=== PATIENT | female | born 1965 | race Hispanic/Latino ===

== ENCOUNTER 2018-12-19 17:04 | Emergency (ER) | payer OTHER ==
[2018-12-19 17:41] LABS: Absolute Lymphocytes (CBC) 4.2 K/uL (0.7-4.9); Absolute Monocytes 0.8 K/uL (0.1-1.3); Absolute Neutrophil 3.8 K/uL (1.8-8.0); Basophils % 0.8 % (0-1.3); Eosinophils % 2.7 % (0-4.4); Hematocrit 43.4 % (36.0-45.0); Lymphocytes % 45.5 % (15.3-44.8); RBC Red Blood Cell Count 4.98 M/uL (3.86-4.86)
[2018-12-19 17:44] LABS: Protime INR 1.01
[2018-12-19 18:12] LABS: Albumin 3.5 g/dL (3.4-5.0); Bilirubin Total 0.3 mg/dL (0.2-1.0); Potassium 3.7 mmol/L (3.5-5.1); Protein, Total 7.8 g/dL (6.4-8.2)
--- NOTE | 2018-12-19 18:14 | RAD REPORT ---
EXAM DESCRIPTION: RAD - Foot Left 3 View - 12/19/2018 5:57 pm CLINICAL HISTORY: Left Foot pain FINDINGS: No fracture is seen The bones are osteoporotic. Subluxation involves several proximal and middle phalanges. Erosions involve the PIP and DIP joints. Fusion involves the third proximal and middle phalanx.
--- NOTE | 2018-12-19 19:18 | RAD REPORT ---
EXAM DESCRIPTION: [facility] [employer]4 6:56 pm CLINICAL HISTORY: left leg pain and swelling. COMPARISON: None. FINDINGS: Left common femoral, superficial femoral, popliteal and posterior tibial veins are compre ssible and demonstrate augmentation. Doppler demonstrates good flow. IMPRESSION: No evidence of deep venous thrombosis involving the left lower extremity.
--- NOTE | 2018-12-19 19:26 | ER ---
Nurse's Notes [facility] Name: Mali Gann Age: 53 yrs Sex: Female : 1965 Arrival Date: 12/19/2018 Time: 17:07 Bed 24 Private MD: Diagnosis: Cellulitis of left lower limb Presentation: 12/19 17:08 Presenting complaint: Patient states: I have some redness and swelling to my LLE that la1 started a couple days ago. Transition of care: patient was not received from another setting of care. Onset of symptoms was December 19, 2018. Risk Assessment: Do you want to hurt yourself or someone else? Patient reports no desire to harm self or others. Initial Sepsis Screen: Does the patient meet any 2 criteria? No. Patient's initial sepsis screen is negative. Does the patient have a suspected source of infection? No. Patient's initial sepsis screen is negative. Care prior to arrival: None. 17:08 Method Of Arrival: Ambulatory la1 17:08 Acuity: ROSITA 3 la1 Historical: - Allergies: 17:09 No Known Allergies; la1 - Home Meds: 17:09 Remicade 100 mg intravenous solr every 6 wks for Psoriatic Arthritis [Active]; la1 - PMHx: 17:09 psoriatic arthritis; la1 - PSHx: 17:09 Tonsillectomy; la1 - Immunization history:: Adult Immunizations up to date. - Social history:: Smoking status: Patient/guardian denies using tobacco. - Ebola Screening: : No symptoms or risks identified at this time. Screenin:20 Abuse screen: Denies threats or abuse. Denies injuries from another. Nutritional aj screening: No deficits noted. Tuberculosis screening: No symptoms or risk factors identified. Fall Risk None identified. Assessment: 17:18 General: Appears in no apparent distress. comfortable, obese, Behavior is calm, aj cooperative, appropriate for age. Pain: Denies pain. Neuro: Level of Consciousness is awake, alert, obeys commands, Oriented to person, place, time, situation, Appropriate for age. Respiratory: Airway is patent Respiratory effort is even, unlabored, Respiratory pattern is regular, symmetrical. Derm: Skin is intact, is healthy with good turgor, Skin is pink, warm \T\ dry. normal. Derm: Rash noted that is red, on left lateral ankle, left medial ankle and anterior aspect of left ankle. Musculoskeletal: Swelling present in right leg and left leg. Vital Signs: 17:09 BP 125 / 66; Pulse 67; Resp 16; Temp 97.5; Pulse Ox 98% on R/A; Weight 127.01 kg; la1 Height 5 ft. 7 in. (170.18 cm); Pain 0/10; 19:13 BP 108 / 49; Pulse 55; Resp 18; Temp 98.0(O); Pulse Ox 99% on R/A; aj 17:09 Body Mass Index 43.85 (127.01 kg, 170.18 cm) la1 ED Course: 17:07 Patient arrived in ED. as 17:08 Triage completed. la1 17:10 Arm band placed on left wrist. la1 17:11 Angeles Lauren, RN is Primary Nurse. aj 17:12 Mark Langley NP is PHCP. pm1 17:12 Tanvir Cisneros MD is Attending Physician. pm1 17:20 Patient has correct armband on for positive identification. aj 17:34 No provider procedures requiring assistance completed. Inserted saline lock: 20 gauge mg2 in right forearm, using aseptic technique. Blood collected. 17:54 Foot Left 3 View XRAY In Process Unspecified. EDMS 18:33 PT-INR Sent. aj 18:33 CMP Sent. aj 18:33 CBC with Diff Sent. aj 18:56 Extremity Venous Uni Ltd US In Process Unspecified. EDMS 18:56 Ultrasound completed. Patient tolerated well. 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 sg3 19:35 IV discontinued, intact, bleeding controlled, No redness/swelling at site. Pressure aj dressing applied. 19:35 Ortho shoe applied to left foot. aj Administered Medications: No medications were administered Outcome: 19:25 Discharge ordered by . pm1 19:35 Discharged to home ambulatory. aj 19:35 Condition: good 19:35 Discharge instructions given to patient, friend, Instructed on discharge instructions, follow up and referral plans. medication usage, Demonstrated understanding of instructions, follow-up care, medications, Prescriptions given X 1. 19:37 Patient left the ED. aj Signatures: Dispatcher [employer] EDMS Angeles Lauren RN RN aj Martinez, Amelia as Attema, Lee, RN RN la1 Mark Langley NP PIT WORKER POWER SHOVEL pm1 Mali Jimenez sg3 Tyler Hurley, RN RN mg2 Corrections: (The following items were deleted from the chart) 19:36 19:35 Elise kruger applied to aj aj
--- NOTE | 2018-12-19 19:26 | EDPHYS ---
Physician Documentation [facility] Name: Mali Gann Age: 53 yrs Sex: Female : 1965 Arrival Date: 12/19/2018 Time: 17:07 Bed 24 Private MD: ED Physician Tanvir Cisneros HPI: 12/19 18:04 This 53 yrs old Female presents to ER via Ambulatory with complaints of Leg pm1 Pain - Redness. 18:04 The patient presents with swelling. The complaints affect the left leg. Context: The pm1 problem was sustained at home, resulted from an unknown cause, the patient can fully bear weight, the patient is able to ambulate. Onset: The symptoms/episode began/occurred 5 week(s) ago. Modifying factors: The symptoms are alleviated by nothing. the symptoms are aggravated by nothing. Associated signs and symptoms: Pertinent positives: swelling, of the left ankle. Treatment prior to arrival includes: no previous treatment. Severity of symptoms: in the emergency department the symptoms are actually worse. The patient has not experienced similar symptoms in the past. The patient has not recently seen a physician. Patient dropped an object on her second left toe 5 weeks ago. Assumed that she broke it and she just isabel taped it. 1 week ago patient had a red tender bump on the dorsum of her left foot with some swelling just above her left ankle. Historical: - Allergies: 17:09 No Known Allergies; la1 - Home Meds: 17:09 Remicade 100 mg intravenous solr every 6 wks for Psoriatic Arthritis [Active]; la1 - PMHx: 17:09 psoriatic arthritis; la1 - PSHx: 17:09 Tonsillectomy; la1 - Immunization history:: Adult Immunizations up to date. - Social history:: Smoking status: Patient/guardian denies using tobacco. - Ebola Screening: : No symptoms or risks identified at this time. ROS: 18:04 Constitutional: Negative for fever, chills, and weight loss, Eyes: Negative for injury, pm1 pain, redness, and discharge, ENT: Negative for injury, pain, and discharge, Neck: Negative for injury, pain, and swelling, Cardiovascular: Negative for chest pain, palpitations, and edema, Respiratory: Negative for shortness of breath, cough, wheezing, and pleuritic chest pain, Abdomen/GI: Negative for abdominal pain, nausea, vomiting, diarrhea, and constipation, Back: Negative for injury and pain, : Negative for injury, bleeding, discharge, and swelling. 18:04 Neuro: Negative for headache, weakness, numbness, tingling, and seizure. 18:04 MS/extremity: Positive for injury or acute deformity, of the left second toe. 18:04 Skin: Positive for swelling, of the left ankle. Exam: 18:04 Constitutional: This is a well developed, well nourished patient who is awake, alert, pm1 and in no acute distress. Head/Face: Normocephalic, atraumatic. Eyes: Pupils equal round and reactive to light, extra-ocular motions intact. Lids and lashes normal. Conjunctiva and sclera are non-icteric and not injected. Cornea within normal limits. Periorbital areas with no swelling, redness, or edema. ENT: Nares patent. No nasal discharge, no septal abnormalities noted. Tympanic membranes are normal and external auditory canals are clear. Oropharynx with no redness, swelling, or masses, exudates, or evidence of obstruction, uvula midline. Mucous membranes moist. Neck: Trachea midline, no thyromegaly or masses palpated, and no cervical lymphadenopathy. Supple, full range of motion without nuchal rigidity, or vertebral point tenderness. No Meningismus. Chest/axilla: Normal chest wall appearance and motion. Nontender with no deformity. No lesions are appreciated. Cardiovascular: Regular rate and rhythm with a normal S1 and S2. No gallops, murmurs, or rubs. Normal PMI, no JVD. No pulse deficits. Respiratory: Lungs have equal breath sounds bilaterally, clear to auscultation and percussion. No rales, rhonchi or wheezes noted. No increased work of breathing, no retractions or nasal flaring. Abdomen/GI: Soft, non-tender, with normal bowel sounds. No distension or tympany. No guarding or rebound. No evidence of tenderness throughout. Back: No spinal tenderness. No costovertebral tenderness. Full range of motion. 18:04 MS/ Extremity: Pulses equal, no cyanosis. Neurovascular intact. Full, normal range of motion. 18:04 Skin: Appearance: normal except for affected area, cellulitis, that is mild, on the just above left ankle. 18:04 Neuro: Orientation: is normal, Motor: is normal, moves all fours, Gait: is steady, at a normal pace, without difficulty. Vital Signs: 17:09 BP 125 / 66; Pulse 67; Resp 16; Temp 97.5; Pulse Ox 98% on R/A; Weight 127.01 kg; la1 Height 5 ft. 7 in. (170.18 cm); Pain 0/10; 19:13 BP 108 / 49; Pulse 55; Resp 18; Temp 98.0(O); Pulse Ox 99% on R/A; aj 17:09 Body Mass Index 43.85 (127.01 kg, 170.18 cm) la1 MDM: 17:12 Patient medically screened. pm1 19:24 Data reviewed: vital signs. Data interpreted: Pulse oximetry: on room air is 99 %. pm1 Interpretation: normal. Counseling: I had a detailed discussion with the patient and/or guardian regarding: the historical points, exam findings, and any diagnostic results supporting the discharge/admit diagnosis, lab results, radiology results, the need for outpatient follow up, to return to the emergency department if symptoms worsen or persist or if there are any questions or concerns that arise at home. 12/19 17:21 Order name: CBC with Diff; Complete Time: 18:49 pm1 12/19 17:21 Order name: CMP; Complete Time: 18:49 pm1 12/19 17:21 Order name: PT-INR; Complete Time: 18:49 pm1 12/19 17:22 Order name: CBC with Automated Diff; Complete Time: 17:45 EDMS 12/19 17:22 Order name: Comprehensive Metabolic Panel; Complete Time: 18:16 EDMS 12/19 17:22 Order name: Protime (+INR); Complete Time: 17:58 EDMS 12/19 17:21 Order name: IV Saline Lock; Complete Time: 17:34 pm1 12/19 17:21 Order name: Extremity Venous Uni Ltd US; Complete Time: 19:21 pm1 12/19 17:21 Order name: Foot Left 3 View XRAY; Complete Time: 18:16 pm1 12/19 19:22 Order name: Post-op Orthopedic Shoe; Complete Time: 19:30 pm1 Administered Medications: No medications were administered Disposition: 12/20 07:01 Co-signature as Attending Physician, Tanvir Cisneros MD. rn Disposition: 12/19/18 19:25 Discharged to Home. Impression: Cellulitis of left lower limb. - Condition is Stable. - Discharge Instructions: Cellulitis, Adult. - Prescriptions for Bactrim DS 800- 160 mg Oral Tablet - take 1 tablet by ORAL route every 12 hours for 10 days; 20 tablet. - Medication Reconciliation Form, Thank You Letter, Antibiotic Education, Prescription Opioid Use form. - Follow up: Emergency Department; When: As needed; Reason: Worsening of condition. Follow up: Private Physician; When: 2 - 3 days; Reason: Recheck today's complaints, Continuance of care, Re-evaluation by your physician. - Problem is new. - Symptoms have improved. Signatures: Dispatcher [employer] EDAngeles Muse RN Tanvir Marion MD MD rn Attema, Lee, RN RN la1 Mark Langley, MIMEOGRAPH OPERATOR MIMEOGRAPH OPERATOR pm1 Corrections: (The following items were deleted from the chart) 12/19 19:37 19:25 12/19/2018 19:25 Discharged to Home. Impression: Cellulitis of left lower limb. aj Condition is Stable. Forms are Medication Reconciliation Form, Thank You Letter, Antibiotic Education, Prescription Opioid Use. Follow up: Emergency Department; When: As needed; Reason: Worsening of condition. Follow up: Private Physician; When: 2 - 3 days; Reason: Recheck today's complaints, Continuance of care, Re-evaluation by your physician. Problem is new. Symptoms have improved. pm1
== END 2018-12-19 19:37 | disposition home or self-care (01) ==
LOC: ER 17:04
DX: L03.116 Cellulitis of left lower limb (principal)
CPT/HCPCS: 36415; 80053; 85025; 85610; 93971; 99284